=== PATIENT | female | born 1990 | race Caucasian/White ===

== ENCOUNTER 2017-07-14 07:59 | Emergency (ER) | payer BC, OTHER ==
[~2017-07-14] VITALS: Ht 165.1 cm; Wt 54.0 kg
[~2017-07-14 07:59] MED LIST: IBUP-1222 PO; OXYC-302 PO
[2017-07-14] MEDS ORDERED: BUPR300T49 PO (08:26)
[2017-07-14] MEDS ORDERED: SODIUM CHLORIDE 0.9% 1,000ML IVBOLUS ONE (08:30)
[2017-07-14] MEDS ORDERED: SODIUM CHLORIDE FLUSH 10ML SYR IVF ONE (08:30)
[2017-07-14 08:55] LABS: HEMATOCRIT 38.5 % (34.6-47.8); WHITE BLOOD COUNT 12.2 x10^3/uL (3.4-10)
[2017-07-14 09:06] LABS: BLOOD UREA NITROGEN 8 mg/dL (7-18)
[2017-07-14 09:24] LABS: ASPARTATE AMINO TRANSFERASE 9 U/L (15-37)
[2017-07-14 12:00] VITALS: BP 96/52
[2017-07-14] MEDS ORDERED: MISOPROSTOL 200 MCG TABLET PO ONE (12:30)
== END 2017-07-14 12:28 | disposition home or self-care (01) ==
LOC: ED 11:13
DX: O03.4 Incomplete spontaneous abortion without complication (principal); F32.9 Major depressive disorder, single episode, unspecified
CPT/HCPCS: 36415; 76801; 80053; 84702; 85025; 86901; 96360; 96361; 99285; J7030

== ENCOUNTER 2017-12-03 02:04 | Emergency (ER) | payer OTHER ==
[~2017-12-03] VITALS: Ht 165.1 cm; Wt 54.6 kg
[~2017-12-03 02:04] MED LIST changes: +BUPR300T49 PO
[2017-12-03] MEDS ORDERED: PRENATAL VITAMIN (02:26)
[2017-12-03 03:12] LABS: BASOPHILS # (AUTO) 0.04 x10^3/uL (0-0.1); BASOPHILS % (AUTO) 0 % (0-1); EOSINOPHILS # (AUTO) 0.12 x10^3/uL (0-0.4); EOSINOPHILS % (AUTO) 1 % (1-7); LYMPHOCYTES # (AUTO) 2.06 x10^3/uL (1-3.4); LYMPHOCYTES % (AUTO) 17 % (22-44); MD NO; MEAN CORPUSCULAR HGB CONC 34.3 g/dL (32.4-35.8); MEAN CORPUSCULAR VOLUME 84.6 fL (80-100); MEAN PLATELET VOLUME 7.8 fL (7.4-10.4); MONOCYTES % (AUTO) 5 % (2-9); NEUTROPHILS # (AUTO) 9.37 x10^3/uL (1.8-6.8); NEUTROPHILS % (AUTO) 77 % (42-75); PLATELET COUNT 231 x10^3/uL (130-400); RED BLOOD COUNT 4.37 x10^6/uL (3.82-5.3); RED CELL DISTRIBUTION WIDTH 14.2 % (9.6-15.2)
[2017-12-03 03:21] LABS: ALBUMIN 3.1 g/dL (3.4-5.0); ANION GAP 7 mmol/L (5-15); CALCIUM 8.2 mg/dL (8.5-10.1); CHLORIDE 108 mmol/L (98-107); CREATININE 0.48 mg/dL (0.55-1.02)
[2017-12-03 03:41] VITALS: BP 100/61
[2017-12-03 04:00] LABS: CULTURE INDICATED? YES; MICROSCOPIC INDICATED
== END 2017-12-03 04:25 | disposition home or self-care (01) ==
LOC: ED 03:32
DX: O20.0 Threatened abortion (principal); Z3A.15 15 weeks gestation of pregnancy; Z36.9 Encounter for antenatal screening, unspecified
CPT/HCPCS: 36415; 76815; 80048; 81001; 82040; 84702; 85025; 86901; 87086; 99285

== ENCOUNTER 2018-05-23 01:54 | Inpatient (IN) | payer OTHER ==
[~2018-05-23] VITALS: Ht 165.1 cm; Wt 63.5 kg
[~2018-05-23 01:54] MED LIST changes: +PRENATAL VITAMIN
[2018-05-23] MEDS ORDERED: OXYTOCIN 30U/ 0.9% NaCL 500ML 500 ML IV ONE (02:16)
[2018-05-23] MEDS ORDERED: D5%-LACTATED RINGERS 1,000 ML IV SCH (02:16)
[2018-05-23] MEDS ORDERED: FENTANYL/BUPIV./NS/PF 250 ML EPIDCONT SCH (02:19)
[2018-05-23] MEDS ORDERED: LIDOCAINE/PF 1%, 30ML ONE ×2 (02:25→05:29)
[2018-05-23] MEDS ORDERED: ALUMINUM/MAG/SIMETHICONE 30 ML UDC PO PRN (02:30)
[2018-05-23] MEDS ORDERED: SODIUM CITRATE/CITRIC ACID 30 ML UDC PO PRN (02:30)
[2018-05-23] MEDS ORDERED: ONDANSETRON 2MG/ML, 2ML IVPush PRN (02:30)
[2018-05-23] MEDS ORDERED: FENTANYL PF 100 MCG/2ML IV PRN (02:30)
[2018-05-23] MEDS ORDERED: METOCLOPRAMIDE 5 MG/ML, 2ML IVPush PRN (02:30)
[2018-05-23] MEDS ORDERED: TERBUTALINE 1 MG/ML, 1ML SQ PRN (02:30)
[2018-05-23] MEDS ORDERED: PENICILLIN GK 5,000,000 UNITS in SODIUM CHLORIDE 0.9% 100 ML IVPB ONE (02:30)
[2018-05-23] MEDS ORDERED: CALCIUM CARBONATE 500 MG TAB.CHEW PO PRN ×2 (02:30→07:30)
[2018-05-23] MEDS ORDERED: TERBUTALINE 1 MG/ML, 1ML IVPush PRN ×2 (02:30)
[2018-05-23 02:37] LABS: BASOPHILS # (AUTO) 0.05 x10^3/uL (0-0.1); BASOPHILS % (AUTO) 0 % (0-1); EOSINOPHILS # (AUTO) 0.16 x10^3/uL (0-0.4); EOSINOPHILS % (AUTO) 1 % (1-7); LYMPHOCYTES # (AUTO) 2.67 x10^3/uL (1-3.4); LYMPHOCYTES % (AUTO) 18 % (22-44); MD NO; MEAN CORPUSCULAR HEMOGLOBIN 28.5 pg (27.0-34.8); MEAN CORPUSCULAR HGB CONC 33.7 g/dL (32.4-35.8); MEAN CORPUSCULAR VOLUME 84.6 fL (80-100); MEAN PLATELET VOLUME 8.6 fL (7.4-10.4); MONOCYTES # (AUTO) 0.96 x10^3/uL (0.2-0.8); MONOCYTES % (AUTO) 7 % (2-9); NEUTROPHILS % (AUTO) 74 % (42-75); PLATELET COUNT 259 x10^3/uL (130-400); RED CELL DISTRIBUTION WIDTH 14.5 % (9.6-15.2)
[2018-05-23] MEDS: LACTATED RINGERS 1,000 ML IV SCH ×2 (02:45→06:25)
[2018-05-23] MEDS ORDERED: FENTANYL PF 100 MCG/2ML ONE ×3 (03:19→06:06)
[2018-05-23] MEDS ORDERED: FENTANYL PF 500 MCG, BUPIVACAINE/PF 0.5%, 30ML 62.5 ML in SODIUM CHLORIDE 0.9% 177.5 ML EPIDCONT SCH (03:30)
[2018-05-23] MEDS: FENTANYL PF 100 MCG/2ML IVPush PRN ×2 (03:36→04:52)
[2018-05-23] MEDS ORDERED: OXYTOCIN 30U/ 0.9% NaCL 500ML 500 ML ONE ×2 (05:29→06:57)
[2018-05-23] MEDS ORDERED: MISOPROSTOL 200 MCG TABLET ONE (05:29)
[2018-05-23] MEDS ORDERED: PENICILLIN GK 2,500,000 UNITS in DEXTROSE 5% 100 ML IVPB SCH (05:30)
[2018-05-23] MEDS ORDERED: BUPIVACAINE 0.25% ONE (06:07)
[2018-05-23] MEDS ORDERED: IBUPROFEN 600 MG TABLET ONE (06:57)
[2018-05-23] MEDS ORDERED: MAGNESIUM HYDROXIDE 8%, 30ML UDC PO PRN (07:30)
[2018-05-23] MEDS ORDERED: ACETAMINOPHEN 325 MG TABLET PO PRN (07:30)
[2018-05-23] MEDS ORDERED: OXYcodone/APAP 5/325MG TABLET ONE (07:52)
[2018-05-23] MEDS: OXYTOCIN 30U/ 0.9% NaCL 500ML 500 ML IV SCH ×4 (07:58→17:58)
[2018-05-23] MEDS ORDERED: DOCUSATE 100 MG CAPSULE PO PRN (08:00)
[2018-05-23] MEDS: OXYcodone/APAP 5/325MG TABLET PO PRN ×4 (08:34→23:09)
[2018-05-23 08:47] VITALS: BP 118/70
[2018-05-23] MEDS: PRENATAL VIT/IRON/FA 1 EACH TABLET PO SCH (09:00)
[2018-05-23 12:30] VITALS: BP 112/67
[2018-05-23 14:32] LABS: MEAN CORPUSCULAR HEMOGLOBIN 28.1 pg (27.0-34.8); MEAN CORPUSCULAR HGB CONC 33.2 g/dL (32.4-35.8); MEAN CORPUSCULAR VOLUME 84.6 fL (80-100); MEAN PLATELET VOLUME 8.5 fL (7.4-10.4); PLATELET COUNT 235 x10^3/uL (130-400); RED BLOOD COUNT 4.18 x10^6/uL (3.82-5.3); RED CELL DISTRIBUTION WIDTH 14.3 % (9.6-15.2)
[2018-05-23 15:22] LABS: BASOPHILS # (AUTO) 0.04 x10^3/uL (0-0.1); BASOPHILS % (AUTO) 0 % (0-1); EOSINOPHILS # (AUTO) 0.04 x10^3/uL (0-0.4); EOSINOPHILS % (AUTO) 0 % (1-7); LYMPHOCYTES # (AUTO) 1.71 x10^3/uL (1-3.4); LYMPHOCYTES % (AUTO) 10 % (22-44); MD SCAN; MONOCYTES # (AUTO) 0.95 x10^3/uL (0.2-0.8); MONOCYTES % (AUTO) 6 % (2-9); NEUTROPHILS # (AUTO) 13.68 x10^3/uL (1.8-6.8); NEUTROPHILS % (AUTO) 83 % (42-75)
[2018-05-23 16:16] VITALS: BP 129/77
[2018-05-23] MEDS: IBUPROFEN 600 MG TABLET PO PRN ×2 (16:20→23:04)
[2018-05-23 20:00] VITALS: BP 102/68
[2018-05-24] VITALS: BP 105/67
[2018-05-24] MEDS: OXYTOCIN 30U/ 0.9% NaCL 500ML 500 ML IV SCH ×4 (03:18→13:58)
[2018-05-24 04:00] VITALS: BP 104/66
[2018-05-24] MEDS: IBUPROFEN 600 MG TABLET PO PRN ×2 (06:08→13:16)
[2018-05-24 07:30] VITALS: BP 101/67
[2018-05-24] MEDS: PRENATAL VIT/IRON/FA 1 EACH TABLET PO SCH (09:09)
[2018-05-24] MEDS: OXYcodone/APAP 5/325MG TABLET PO PRN ×2 (10:13→17:11)
[2018-05-24] MEDS ORDERED: IBUP-1222 PO (17:07)
[2018-05-24] MEDS ORDERED: OXYC-302 PO (17:08)
== END 2018-05-24 18:39 | disposition home or self-care (01) | DRG 807 ==
LOC: LDOP 01:54 → LDIP 02:20 → 2NW 08:26
PROVIDERS: ADMIT Obstetrics & Gynecology; ATTEND Obstetrics & Gynecology
PROC: 10E0XZZ Delivery of Products of Conception, External Approach (ICD-10-PCS; principal; 2018-05-23)
PROC: 0UQMXZZ Repair Vulva, External Approach (ICD-10-PCS; 2018-05-23)
PROC: 10907ZC Drainage of Amniotic Fluid, Therapeutic from Products of Conception, Via Natural or Artificial Opening (ICD-10-PCS; 2018-05-23)
DX: O99.824 Streptococcus B carrier state complicating childbirth (principal); Z37.0 Single live birth; O99.344 Other mental disorders complicating childbirth; F32.9 Major depressive disorder, single episode, unspecified; O70.0 First degree perineal laceration during delivery; O69.81X0 Labor and delivery complicated by cord around neck, without compression, not applicable or unspecified; Z3A.39 39 weeks gestation of pregnancy
CPT/HCPCS: 36415; 85025; 86850; 86900; G0378; J2540; J3010; J3490; J2590; J7050; J7120